=== PATIENT | male | born 1980 | race African-American/Black ===

== ENCOUNTER 2020-08-02 01:05 | Emergency (ER) | payer OTHER ==
[2020-08-02 01:08] VITALS: BP_SYST 133
[2020-08-02 01:42] VITALS: BP_SYST 133
[2020-08-03 08:09] LABS: HEPATITIS B CORE AB, TOTAL Negative (Negative); HEPATITIS B SURFACE AG Negative (Negative)
== END 2020-08-02 01:42 | disposition home or self-care (01) ==
LOC: SED 01:05
DX: S61.231A Puncture wound without foreign body of left index finger without damage to nail, initial encounter (principal); W46.0XXA Contact with hypodermic needle, initial encounter; Y93.89 Activity, other specified; Y92.89 Other specified places as the place of occurrence of the external cause; Y99.8 Other external cause status
CPT/HCPCS: 36415; 86704; 86706; 86803; 87340; 99283